=== PATIENT | male | born 1960 | race African-American/Black ===

== ENCOUNTER 2016-10-22 12:13 | Emergency (ER) | payer OTHER ==
[~2016-10-22] VITALS: Ht 182.9 cm; Wt 87.8 kg
[2016-10-22 12:17] VITALS: Ht 182.9 cm; Wt 87.8 kg
[2016-10-22] MEDS ORDERED: AMLO-114 PO (13:07)
[2016-10-22] MEDS ORDERED: ASPI81TA28 PO (13:07)
[2016-10-22] MEDS ORDERED: DOXY100C76 PO (13:07)
[2016-10-22] MEDS ORDERED: LITH1TAB PO (13:07)
[2016-10-22] MEDS ORDERED: LISI-725 PO (13:07)
[2016-10-22] MEDS ORDERED: SODIUM CHLORIDE 0.9% 1000ML 1,000 ML IV STA (13:50)
[2016-10-22] MEDS ORDERED: KETOROLAC TROMETHAMINE 30 MG/ML VIAL IV STA (13:50)
[2016-10-22 14:08] LABS: BASO % 0.1 %; BASO ABS # 0.01 K/uL (0-0.2); COMPLETE YES; EOS % 0.1 %; HEMATOCRIT 39.7 % (42-52); IG% 0.4 %; LYMPH % 12.6 %; LYMPH ABS # 2.18 K/uL (1.2-3.4); MEAN CELL VOLUME 90.4 fL (80-100); MEAN CORPUSCULAR HEMOGLOBIN 31.2 pg (25-34); MEAN CORPUSCULAR HGB CONC 34.5 g/dl (32-36); MEAN PLATELET VOLUME 8.9 fL (7.4-10.4); MONO % 6.1 %; NEUT % 80.7 %; PLATELET COUNT 240 K/uL (130-400); RED BLOOD COUNT 4.39 M/uL (4.7-6.1); WHITE BLOOD COUNT 17.25 K/uL (4.8-10.8)
[2016-10-22 14:26] LABS: BUN/CREATININE RATIO 8.6 (10-20); CALCIUM 8.9 mg/dl (8.5-10.1); CREATININE 1.4 mg/dl (0.60-1.40); POTASSIUM 3.8 mmol/L (3.5-5.1)
[2016-10-22 14:37] LABS: URINE APPEARANCE CLEAR (CLEAR); URINE BILIRUBIN NEG (NEG); URINE COLOR YELLOW; URINE EPITHELIAL CELL AUTO >30 /lpf (0-5); URINE NITRITE NEG (NEG); URINE SPECIFIC GRAVITY 1.012 (1.000-1.030); UROBILINOGEN NEG (NEG)
[2016-10-22 14:48] LABS: MANUAL MICROSCOPIC REQUIRED? NO; REVIEW REQ? YES
--- NOTE | 2016-10-22 15:56 | DIAGNOSTIC IMAGING REPORT ---
TESTICULAR ULTRASOUND HISTORY: Pain. Edema. RIGHT TESTICULAR SWELLING COMPARISON: None. FINDINGS: Right testis: Maximum dimension 3.9 cm. Slight increase in vascular flow. Left testis: Maximum dimension 4.1 cm. Normal vascular flow Bilateral hydroceles. IMPRESSION: 1. Slight increase in vascular flow to the right testis compared to the left.. 2. Possibility of mild right orchitis is considered 3. Bilateral hydroceles Electronically signed by: Anibal Noriega M.D. 10/22/2016 3:54 PM Dictated Date/Time: 10/22/2016 3:52 PM
[2016-10-22] MEDS ORDERED: PIPERACILLIN/TAZOBACTAM 4.5 GM/100ML D5W IV STA (16:10)
[2016-10-22] MEDS ORDERED: CEFTRIAXONE SOD INJ 1 GM ADDVIAL IV STA (16:11)
[2016-10-22] MEDS ORDERED: DEXTROSE 5% IV STA (17:01)
[2016-10-22] MEDS ORDERED: GENTAMICIN IV STA (17:01)
[2016-10-22] MEDS ORDERED: GENTAMICIN CONSULT ACTIVE PRN (17:30)
[2016-10-22] MEDS ORDERED: GENTAMICIN INJ 600 MG in DEXTROSE 5% 100ML 100 ML IV SCH (18:00)
[2016-10-22 19:55] VITALS: BP 110/65; PULSE 82; TEMP 37.1; O2SAT 96
--- NOTE | 2016-10-22 20:28 | EMERGENCY ROOM VISIT NOTE ---
History Report prepared by Eli: Viviana Gonzalez Under the Supervision of: Dr. Darrin Goncalves M.D. First contact with patient: 13:44 Chief Complaint: TESTICULAR PAIN Stated Complaint: TESTICULAR PAIN/SWELLING History of Present Illness The patient is a 56 year old male who presents to the Emergency Room with complaints of worsening right sided testicular pain and swelling for the past 3 days. He is accompanied by 2 corrections officers from [facility], where the patient resides. The patient states 3 days ago he noticed his right testicle become increasingly swollen and painful. He rates his discomfort as an 8.5/10. He reports the testicle has now swelled the to the size of a "goose egg". He saw the [facility] earlier this past week and was placed on antibiotics , but note they haven't provided any improvement yet. The patient denies any recent injuries or trauma to the area. He denies any discharge or drainage. The patient also denies LOC, headache, fevers, chills, diaphoresis, visual changes, neck pain, chest pain, breathing difficulties, nausea, vomiting, abdominal pain , back pain, melena, hematochezia, urinary symptoms, numbness, weakness, lymphadenopathy, rash, or other complaints. Source of History: patient Onset: 3 days BACK SIZER Position: other (right testicle) Timing: worsening Modifying Factors (Relieving): other (antibiotics) Review of Systems See HPI for pertinent positives and negatives. A total of ten systems were reviewed and were otherwise negative. Past Medical & Surgical Medical Problems: (1) Hypertension Social History Smoking Status: Current Every Day Smoker Alcohol Use: none Drug Use: none Marital Status: single Housing Status: other (Skilled Nursing) Current/Historical Medications Scheduled Amlodipine (Norvasc), 10 MG PO DAILY Aspirin (Aspirin Ec), 81 MG PO DAILY Doxycycline Monohydrate (Monodox), 100 MG PO BID Lisinopril (Zestril), 20 MG PO DAILY [place] Carbonate Ext Rel (Lithobid Ext Rel), 450 MG PO BID Allergies Coded Allergies: No Known Allergies (Unverified , 10/22/16) Physical Exam Vital Signs Date Time Temp Pulse Resp B/P Pulse Ox O2 Delivery O2 Flow Rate FiO2 10/22/16 17:50 108/72 10/22/16 16:02 81 111/64 97 Room Air 10/22/16 12:17 37.5 92 20 131/85 98 Room Air Physical Exam GENERAL: Awake, alert, well-appearing, in no distress HENT: Normocephalic, atraumatic. Oropharynx unremarkable. EYES: Normal conjunctiva. Sclera non-icteric. NECK: Supple. No nuchal rigidity. FROM. No JVD. RESPIRATORY: Clear to auscultation. CARDIAC: Regular rate, normal rhythm. Extremities warm and well perfused. Pulses equal. ABDOMEN: Soft, non-distended. No tenderness to palpation. No rebound or guarding. No masses. : Normal penis, moderate scrotal edema, significant tenderness and swelling of right testicle, some overlying scrotal erythema. RECTAL: Deferred. MUSCULOSKELETAL: Chest examination reveals no tenderness. The back is symmetrical on inspection without obvious abnormality. There is no CVA tenderness to palpation. No joint edema. LOWER EXTREMITIES: Calves are equal size bilaterally and non-tender. No edema. No discoloration. NEURO: Normal sensorium. No sensory or motor deficits noted. SKIN: No rash or jaundice noted. Medical Decision & Procedures ER Provider Diagnostic Interpretation: This Ultrasound was reviewed and interpreted by the radiologist and reviewed by myself. TESTICULAR ULTRASOUND HISTORY: Pain. Edema. RIGHT TESTICULAR SWELLING COMPARISON: None. FINDINGS: Right testis: Maximum dimension 3.9 cm. Slight increase in vascular flow. Left testis: Maximum dimension 4.1 cm. Normal vascular flow Bilateral hydroceles. IMPRESSION: 1. Slight increase in vascular flow to the right testis compared to the left.. 2. Possibility of mild right orchitis is considered 3. Bilateral hydroceles Electronically signed by: Anibal Noriega M.D. 10/22/2016 3:54 PM Laboratory Results 10/22/16 13:55 Red Blood Count 4.39, Mean Corpuscular Volume 90.4, Mean Corpuscular Hemoglobin 31.2, Mean Corpuscular Hemoglobin Concent 34.5, Mean Platelet Volume 8.9, Neutrophils (%) (Auto) 80.7, Lymphocytes (%) (Auto) 12.6, Monocytes (%) (Auto) 6.1, Eosinophils (%) (Auto) 0.1, Basophils (%) (Auto) 0.1, Neutrophils # (Auto) 13.92, Lymphocytes # (Auto) 2.18, Monocytes # (Auto) 1.05, Eosinophils # (Auto) 0.02, Basophils # (Auto) 0.01 10/22/16 13:55 Test 10/22/16 13:55 10/22/16 14:13 White Blood Count 17.25 K/uL (4.8-10.8) Red Blood Count 4.39 M/uL (4.7-6.1) Hemoglobin 13.7 g/dL (14.0-18.0) Hematocrit 39.7 % (42-52) Mean Corpuscular Volume 90.4 fL (80-100) Mean Corpuscular Hemoglobin 31.2 pg (25-34) Mean Corpuscular Hemoglobin Concent 34.5 g/dl (32-36) Platelet Count 240 K/uL (130-400) Mean Platelet Volume 8.9 fL (7.4-10.4) Neutrophils (%) (Auto) 80.7 % Lymphocytes (%) (Auto) 12.6 % Monocytes (%) (Auto) 6.1 % Eosinophils (%) (Auto) 0.1 % Basophils (%) (Auto) 0.1 % Neutrophils # (Auto) 13.92 K/uL (1.4-6.5) Lymphocytes # (Auto) 2.18 K/uL (1.2-3.4) Monocytes # (Auto) 1.05 K/uL (0.11-0.59) Eosinophils # (Auto) 0.02 K/uL (0-0.5) Basophils # (Auto) 0.01 K/uL (0-0.2) RDW Standard Deviation 49.5 fL (36.4-46.3) RDW Coefficient of Variation 15.0 % (11.5-14.5) Immature Granulocyte % (Auto) 0.4 % Immature Granulocyte # (Auto) 0.07 K/uL (0.00-0.02) Anion Gap 10.0 mmol/L (3-11) Est Creatinine Clear Calc Drug Dose 66.2 ml/min Estimated GFR () 65.6 Estimated GFR (Non- 56.6 BUN/Creatinine Ratio 8.6 (10-20) Calcium Level 8.9 mg/dl (8.5-10.1) Total Bilirubin 0.7 mg/dl (0.2-1) Direct Bilirubin 0.2 mg/dl (0-0.2) Aspartate Amino Transf (AST/SGOT) 15 U/L (15-37) Alanine Aminotransferase (ALT/SGPT) 16 U/L (12-78) Alkaline Phosphatase 75 U/L (45-117) Total Protein 7.4 gm/dl (6.4-8.2) Albumin 3.2 gm/dl (3.4-5.0) Lipase 71 U/L (73-393) Urine Color YELLOW Urine Appearance CLEAR (CLEAR) Urine pH 7.0 (4.5-7.5) Urine Specific [place] 1.012 (1.000-1.030) Urine Protein NEG (NEG) Urine Glucose (UA) NEG (NEG) Urine Ketones TRACE (NEG) Urine Occult Blood TRACE (NEG) Urine Nitrite NEG (NEG) Urine Bilirubin NEG (NEG) Urine Urobilinogen NEG (NEG) Urine Leukocyte Esterase LARGE (NEG) Urine WBC (Auto) >30 /hpf (0-5) Urine RBC (Auto) 0-4 /hpf (0-4) Urine Hyaline Casts (Auto) 1-5 /lpf (0-5) Urine Epithelial Cells (Auto) >30 /lpf (0-5) Urine Bacteria (Auto) NEG (NEG) Urine Renal Epithelial Cells /lpf (0-5) Laboratory results reviewed by me Medications Administered Medications (Trade) Dose Ordered Sig/Diana Route Start Time Stop Time Status Last Admin Dose Admin Sodium Chloride (Nss 1000ml) 1,000 ml @ 999 mls/hr Q1H1M STAT IV 10/22/16 13:50 10/22/16 14:50 DC 10/22/16 13:50 999 MLS/HR Ketorolac Tromethamine (Toradol Inj) 30 mg NOW STAT IV 10/22/16 13:50 10/22/16 13:52 DC 10/22/16 14:26 30 MG Ceftriaxone Sodium 1 gm 1 gm NOW STAT IV 10/22/16 16:11 10/22/16 16:12 DC 10/22/16 16:29 1 GM Gentamicin Sulfate/Dextrose (Gentamicin Inj/ D5 100ml) 115 ml @ 100 mls/hr DAILY@1800 IV 10/22/16 18:00 11/01/16 17:59 10/22/16 17:49 100 MLS/HR ED Course 1347: The patient was evaluated in room C8. A complete history and physical exam was performed. 1350: Toradol 30 mg IV, NSS 1000 ml @ 999 mls/hr IV. 1610: Zosyn 4.5 gm IV. 1611: Rocephin 1 gm IV. 1659: I discussed the patients case with [place]. M[place], [facility]. He recommends I administer Rocephin and Gentamicin. 1708: I consulted with [facility]. They are going to verify the correct dose of antibiotics for the patient and call me back. 1715: I spoke with the [facility]. They can coordinate the patient receiving antibiotic doses at the Skilled Nursing and will send him back here if there are any issues with administering his antibiotics. 1725: I reevaluated the patient. He is feeling better and resting comfortably. 1800: Gentamicin Sulfate 600 mg/Dextrose 115 ml @ 100 mls/hr IV. 1825: I reevaluated the patient. He is feeling well and resting comfortably. I discussed his results and discharge instructions and he verbalized complete understanding and agreement. Medical Decision Triage Nursing notes reviewed and agree them. Additional history obtained from the [facility] RN. The patient had received IM Rocephin and oral doxycycline starting yesterday. No culture was performed on urine prior to antibiotics. The patient's history was concerning for testicular swelling. Differential diagnosis: Etiologies such as torsion, mass, infection, hernia, hydrocele, epididymitis, trauma, intra-abdominal process, as well as others were entertained. Physical examination: As above. Tender right as to go. ER treatment provided: IV Toradol On reassessment the patient felt better. IV Rocephin and IV gentamicin after urology and pharmacy consultation. Diagnostic interpretation by me: The labs revealed a moderate leukocytosis of 17,000. Chem panel unremarkable. The patient's urinalysis raise some concern for infection. Culture pending. Imaging studies: Ultrasound as above Consultation: A consultation was placed with the urologist, Dr. Moyer. The case was discussed and diagnostics were reviewed. He recommended 24-hour dosing of Rocephin and gentamicin until culture resulted. Unfortunately since antibiotics were started we discussed this may be clouding the culture results. [place] situation would be for the patient to be transitioned to oral Cipro. Additional antibiotic treatment was recommended at the care home. I did discuss this with the care home RN and she felt that this would be easy to accommodate especially if the saline lock was left in place. The patient will be treated at the [facility]. If there are any difficulties obtaining the antibiotics for IV administration the patient can be brought back to the emergency department for another 24 hour dosing. By the evaluation outlined above emergent etiologies such as torsion, mass, infection, hernia, hydrocele, trauma, intra-abdominal process, as well as others were deemed relatively unlikely. The patient and care home were informed about the findings as listed above. All questions were answered and they were pleased with the treatment. Return instructions were outlined and the patient was discharged in stable condition. Outpatient prescription management: IV Rocephin and IV gentamicin The chart was completed utilizing [employer] voice recognition software. Grammatical errors, random word insertions, pronoun errors, and incomplete sentences are an occasional consequence of this system due to software limitations, ambient noise, and hardware issues. Any formal questions or concerns about the content, text, or information contained within the body of this dictation should be directly addressed to the physician for clarification. Consults Time Called: 1654 Consulting Physician: FRANCIS [facility]rol[facility] Returned Call: 1658 I discussed the patients case with [facility]. He recommends I administer Rocephin and Gentamicin. Impression Primary Impression: Orchitis Scribe Attestation The scribe's documentation has been prepared under my direction and personally reviewed by me in its entirety. I confirm that the note above accurately reflects all work, treatment, procedures, and medical decision making performed by me. Departure Information Dispostion Other ([facility]) [facility] Instructions My [facility] Additional Instructions Ultrasound imaging was consistent with orchitis. White blood cell count was 17,000. Urinalysis was concerning for infection. Urology was consulted and recommended 24-hour dosing of Rocephin and gentamicin until cultures were resulted. Rocephin 1 g IV and gentamicin 600 mg IV every 24 hours. The care home physician should oversee the continuation of antibiotics based upon culture results. [place] situation would be improvement and transition to oral ciprofloxacin 500 mg twice daily within 2-3 days. The saline lock was left in place for ease of administration. Ibuprofen(Motrin, Advil) may be used for fever or pain. Use 600mg every six hours as needed. Take with food. Avoid using more than 2400mg in a 24 hour period. Do not use 2400mg per day for more than three consecutive days without physician direction. Prolonged inappropriate use can lead to stomach upset or ulcers. And/or Tylenol: Take 1000 mg every 6 hours as needed for pain. Do not take more than 3000 mg in a 24 hour period. Return to the ER immediately for spreading redness, fevers, pus-like drainage, severe pain, or as needed.
== END 2016-10-22 19:55 ==
LOC: C.EDB 12:14 → C.EDC 19:55
DX: N45.2 Orchitis (principal); N50.811 Right testicular pain; N50.89 Other specified disorders of the male genital organs; I10 Essential (primary) hypertension; Z79.82 Long term (current) use of aspirin; Z79.899 Other long term (current) drug therapy; F17.200 Nicotine dependence, unspecified, uncomplicated